=== PATIENT | female | born 1945 | race Caucasian/White ===

== ENCOUNTER → 2018-09-25 | Outpatient (CLI) | payer MEDICARE, OTHER | END | disposition home or self-care (01) | LOC: HKI 09:28 | DX: Z47.1 Aftercare following joint replacement surgery (principal); M16.11 Unilateral primary osteoarthritis, right hip; M17.12 Unilateral primary osteoarthritis, left knee; Z96.642 Presence of left artificial hip joint | CPT/HCPCS: 20610; 73523; 73564-LT ==